=== PATIENT | male | born 1995 | race Caucasian/White ===

== ENCOUNTER → 2022-05-16 | Day surgery (SDC) | payer OTHER ==
[~2022-05-16] MED LIST: DEXAMETHASONE SOD PHOSPHATE 4 MG/ML 1 ML VIAL IV ONE; HYDROmorphone 0.5 MG/0.5 ML SYRINGE IVP ONE; HYDROmorphone 0.5 MG/0.5 ML SYRINGE IVP PRN; IOPAMIDOL-370 50ML BTL MISCELLANE ONE; KETOROLAC 15 MG/ML 1 ML VIAL IVP ONE; LACTATED RINGERS 1,000 ML IV ONE; LACTATED RINGERS 1,000 ML IV SCH; LIDOCAINE 2% INJ 20 MG/ML (2 ML VIAL) ONE; MIDAZOLAM 2 MG/2 ML VIAL IV PRN; MIDAZOLAM 2 MG/2 ML VIAL IVP ONE; MIDAZOLAM 2 MG/2 ML VIAL ONE; ONDANSETRON 4 MG/2 ML VIAL IVP ONE; PROPOFOL 10 MG/ML 20 ML VIAL IV ONE; SCOPOLAMINE 1 MG/72 HR PATCH TRANSDERM ONE; fentaNYL (PF) 50 MCG/ML 2 ML AMP ONE
--- NOTE | 2022-05-16 09:57 | P.HPIHPCON ---
History of Present Illness H&P Date: 05/16/22 Chief Complaint: right ureteral stone this is a 27-year-old male with history of 2 mm right-sided distal stone, he is symptomatic from his stone. He has required two emergency room presentation secondary to intractable, He also has required narcotics for pain control. Opt ion of right-sided ureteroscopy with holmium laser was discussed with him. Discussed with him the risk which includes but not limited to bleeding, infection, injury to ureter. Discussed also risks from anesthesia. He undestood all the risk and agreed to proceed with right-sided ureteroscopy, laser lithotripsy, stone basketing and possible stent insertion Consent for Procedure: I have explained the operation/procedure to the patient, including the risks, benefits, side effects, alternative therapies (including not receiving the proposed treatment or service), the likelihood of the patient achieving his/her goals, and potential recuperation problems for the procedure/sedation/analgesia, as well as any blood products, if indicated. I also explained to the patient the risks, benefits and side effects of the alternatives, as well as the risks related to not receiving the proposed procedure, care, treatment, or services. 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" Past Anesthesia/Blood Transfusion Reactions: No Reported Reaction Smoking Status: Current every day smoker Medications and Allergies Home Medications Medication Instructions Recorded Confirmed Type HYDROcodone/APAP 10-325MG [[place] 1 tab PO Q4-6H PRN 05/15/22 05/15/22 History 10-325] Ondansetron [Zofran] 4 mg PO Q8HR PRN 05/15/22 05/15/22 History Tamsulosin [Flomax] 0.4 mg PO DAILY 05/15/22 05/15/22 History Allergies Allergy/AdvReac Type Severity Reaction Status Date / Time Sulfa (Sulfonamide Allergy Unknown Verified 05/15/22 12:30 Antibiotics) Childhood Surgical - Exam - General no distress, moderate pain - Eyes normal ocular movement, no pale - ENT normal nares, normal mucosa Assessment and Plan Assessment: OR for right-sided ureteroscopy, holmium laser lithotripsy, stone basketing and possible stent insertion
--- NOTE | 2022-05-16 12:30 | XR ---
EXAMINATION TYPE: XR KUB DATE OF EXAM: 05/16/2022 COMPARISON: NONE HISTORY: Preop for cystogram kidney stone TECHNIQUE: One view abdominal series FINDINGS: The osseous structures are intact. The bowel gas pattern is nonspecific. Extensive retained fecal de bris throughout the colon obscures the renal outlines pelvis. Exam is markedly limited calcification. IMPRESSION: 1. Severe constipation. Bowel content limits assessment of the renal outlines for calcification.
[2022-05-16 15:44] VITALS: TEMP 97.2
--- NOTE | 2022-05-16 15:44 | P.OP ---
Date of Procedure: 05/16/22 Preoperative Diagnosis: Right ureteral stone Postoperative Diagnosis: Right-sided hydronephrosis Procedure(s) Performed: Cystoscopy, right ureteroscopy, ureteral balloon dilation and stent insertion Implants: 6-Italian by 26 cm stent in the right ureter Anesthesia: BHAKTI Surgeon: Yonathan Shaver Estimated Blood Loss (ml): 5 Pathology: none sent Condition: stable Disposition: PACU Indications for Procedure: this is a 27-year-old male with history of 2 mm right-sided distal stone, he is symptomatic from his stone. He has required two emergency room presentation secondary to intractable, He also has required narcotics for pain control. Option of right-sided ureteroscopy with holmium laser was discussed with him. Discussed with him the risk which includes but not limited to bleeding, infection, injury to ureter. Discussed also risks from anesthesia. He undestood all the risk and agreed to proceed with right-sided ureteroscopy, laser lithotripsy, stone basketing and possible stent insertion Operative Findings: Right distal ureteral edema, blood clots in the distal ureter Description of Procedure: Patient brought to the operating room, general anesthesia was induced. He was prepped and draped in sterile fashion and placed in dorsal lithotimy position. cystoscopy fitted with a 22-Italian sheath was inserted per urethra, cystoscopy was performed which showed no abnormality within the bladder. Of note the right UVJ was narrowed. This time a sensor wire was advanced through the UVJ and advanced up into the kidney. Next a ureteral balloon dilator was advanced up 1 cm up the UVJ and the UVJ was dilated using the balloon dilator. The scope was withdrawn with the wire in place, next a semirigid ureteroscope was inserted and advanced up the right ureteral orifice. Ureteroscope was advanced through the distal ureter there was evidence of ureteral edema and blood clots within the distal ureter, but no stone was visualized. Past the distal ureter there was significant dilation of the ureter. At this time the ureteroscope was advanced all the way up to the UPJ which showed no stones or abnormality within the ureter. Pullback ureteroscopy was performed showed no injury to the ureter or evidence of any ureteral stone, the distal ureteral edema was visualized. This time the ureteroscope was withdrawn and a ureteral stent was passed over the wire, the proximal curl was visualized on fluoroscopy and the distal curl was visualized using the cystoscope. The stent was left on a string and taped to the patient penis. The bladder was emptied at the end of the case. Patient tolerated procedure well was taken to recovery in stable condition
--- NOTE | 2022-05-16 15:46 | FL ---
EXAMINATION TYPE: FL guidance operating room DATE OF EXAM: 05/16/2022 HISTORY: Fluoroscopy time 10 seconds of fluoroscopy provided. IMPRESSION: 1. Fluoroscopy time.
[2022-05-16 16:02] VITALS: RESP 18
[2022-05-16 16:12] VITALS: BP 148/87; PULSE 58
== END ==
LOC: OR 12:14
PROVIDERS: ATTEND Urology
DX: N13.30 Unspecified hydronephrosis (principal); F17.210 Nicotine dependence, cigarettes, uncomplicated; F41.9 Anxiety disorder, unspecified; N20.0 Calculus of kidney; Z79.899 Other long term (current) drug therapy; Z88.2 Allergy status to sulfonamides; Z98.42 Cataract extraction status, left eye
CPT/HCPCS: 52344; 74018; C2625; C1769; J2250; J1100; J0690; J3010; J1885; J2704; J1170; Q9967; J2001